=== PATIENT | male | born 1950 | race Caucasian/White ===

== ENCOUNTER → 2020-10-25 14:04 | Outpatient (REF) | payer MEDICARE, SELFPAY | LOC: HO.SL 14:04 | PROVIDERS: PCP Internal Medicine; Visit Provider Internal Medicine | DX: G47.33 Obstructive sleep apnea (adult) (pediatric) (principal) | CPT/HCPCS: 95806 ==

== ENCOUNTER → 2021-02-03 12:46 | Outpatient (BNVA) | payer MEDICARE, SELFPAY | PROVIDERS: PCP Internal Medicine; Visit Provider Nurse Practitioner Gerontology | DX: Z13.89 Encounter for screening for other disorder (principal) | CPT/HCPCS: Q3014 ==

== ENCOUNTER 2021-08-26 13:44 | Outpatient (REF) | payer MEDICARE, SELFPAY ==
[2021-08-26 17:53] LABS: Estimated Average Glucose 126 mg/dL
[2021-08-26 18:06] LABS: Alanine Aminotransferase 18 U/L (0-40); Albumin Level 4.5 g/dL (3.5-5.0); Alkaline Phosphatase 112 U/L (39-117); Anion Gap 17 (12-20); Aspartate Amino Transferase 15 U/L (5-37); Bilirubin Total 0.7 mg/dL (0.0-1.0); Blood Urea Nitrogen 19 mg/dL (9-16); Carbon Dioxide 22 mmol/L (22-29); Chloride 108 mmol/L (96-108); Cholesterol 115 mg/dL; Estimated Glomerular Filt Rate > 60; Glucose Fasting 126 mg/dL (60-99); HDL Cholesterol 35 mg/dL; LDL Cholesterol Calculated 49 mg/dl; Sodium 142 mmol/L (135-145); Total Protein 7.1 g/dL (6.5-8.0); Triglycerides 159 mg/dL
[2021-08-26 18:07] LABS: Microalbum/Creatinine Ratio Ur 15.7 ug/mg cr
[2021-08-26 18:26] LABS: Prostate Specific Antigen Scr 0.89 ng/mL (<0.05-4.0); Vitamin D 25-OH Total 37.9 ng/mL (>30)
[2021-08-28 04:56] LABS: LDL Cholesterol Direct 59 mg/dL (<100)
== END 2021-08-26 13:45 | disposition home or self-care (01) ==
LOC: HO.HMGCLDS 13:44
PROVIDERS: PCP Internal Medicine; Visit Provider Nurse Practitioner Gerontology
DX: E11.42 Type 2 diabetes mellitus with diabetic polyneuropathy (principal); E78.5 Hyperlipidemia, unspecified; I10 Essential (primary) hypertension; E66.01 Morbid (severe) obesity due to excess calories; Z68.36 Body mass index [BMI] 36.0-36.9, adult; E55.9 Vitamin D deficiency, unspecified; N40.0 Benign prostatic hyperplasia without lower urinary tract symptoms; Z12.5 Encounter for screening for malignant neoplasm of prostate
CPT/HCPCS: 36415; 80053; 80061; 82043; 82306; 83036; 83721; 84153

== ENCOUNTER → 2021-09-14 13:47 | Outpatient (BNVA) | payer MEDICARE, SELFPAY | PROVIDERS: PCP Internal Medicine; Referring Provider Internal Medicine; Visit Provider Internal Medicine Cardiovascular Disease | DX: I10 Essential (primary) hypertension (principal) | CPT/HCPCS: 93005; 99212 ==

== ENCOUNTER → 2021-12-26 07:26 | Outpatient (BNVA) | payer MEDICARE, SELFPAY | PROVIDERS: PCP Internal Medicine; Visit Provider Nurse Practitioner Gerontology | CPT/HCPCS: Q3014 ==

== ENCOUNTER 2022-05-10 14:36 | Outpatient (REF) | payer MEDICARE, SELFPAY ==
[2022-05-10 15:07] LABS: Hematocrit 41.1 % (42.0-52.0); Hemoglobin 13.6 g/dl (14.0-18.0); Mean Corpuscular HGB Conc 33.1 g/dl (31.0-36.0); Mean Corpuscular Hemoglobin 28.5 pg (27.0-33.0); Mean Corpuscular Volume 86.2 fL (80.0-98.0); Mean Platelet Volume 10.4 fL (9.4-12.4); Platelet Count 250 X10*3/uL (160-400); Red Blood Count 4.77 X10*6/uL (4.60-5.80); Red Cell Distribution Width 13.8 % (11.0-16.0); White Blood Count 8.7 X10*3/uL (4.8-10.8)
[2022-05-10 15:45] LABS: Alanine Aminotransferase 22 U/L (0-40); Albumin Level 4.4 g/dL (3.5-5.0); Alkaline Phosphatase 111 U/L (39-117); Anion Gap 10 (12-20); Aspartate Amino Transferase 20 U/L (5-37); Bilirubin Total 0.5 mg/dL (0.0-1.0); Blood Urea Nitrogen 18 mg/dL (9-16); Carbon Dioxide 25 mmol/L (22-29); Chloride 108 mmol/L (96-108); Cholesterol 129 mg/dL; Estimated Glomerular Filt Rate > 60; Glucose Fasting 115 mg/dL (60-99); HDL Cholesterol 35 mg/dL; LDL Cholesterol Calculated 64 mg/dl; Potassium 4.4 mmol/L (3.3-5.1); Sodium 139 mmol/L (135-145); Total Protein 7.1 g/dL (6.5-8.0); Triglycerides 151 mg/dL
[2022-05-10 15:47] LABS: Estimated Average Glucose 120 mg/dL; Hemoglobin A1c % 5.8 %
[2022-05-10 16:31] LABS: Creatinine Urine 65.04 mg/dL; Microalbum/Creatinine Ratio Ur 7.6 ug/mg cr
== END 2022-05-10 14:37 | disposition home or self-care (01) ==
LOC: HO.LAB 14:36
PROVIDERS: Absent Provider Nurse Practitioner Gerontology; PCP Internal Medicine; Visit Provider Internal Medicine
DX: Z13.89 Encounter for screening for other disorder (principal)
CPT/HCPCS: 36415; 80053; 80061; 82043; 82306; 83036; 84153; 85027

== ENCOUNTER 2022-05-10 15:09 | Outpatient (REF) | payer MEDICARE, SELFPAY ==
[2022-05-10 15:42] LABS: COVID-19 Test Negative (Negative); IDNOW Serial# 16C4AD1C
== END 2022-05-10 15:10 | disposition home or self-care (01) ==
LOC: HO.LAB 15:09
PROVIDERS: Visit Provider Internal Medicine
DX: E11.42 Type 2 diabetes mellitus with diabetic polyneuropathy (principal); E78.5 Hyperlipidemia, unspecified; I10 Essential (primary) hypertension; Z12.5 Encounter for screening for malignant neoplasm of prostate; Z20.822 Contact with and (suspected) exposure to COVID-19
CPT/HCPCS: 36415; 80053; 80061; 82043; 82306; 83036; 84153; 85027; 87635; C9803

== ENCOUNTER → 2022-08-25 13:00 | Outpatient (BNVA) | payer MEDICARE, SELFPAY | PROVIDERS: PCP Internal Medicine; Visit Provider Nurse Practitioner Family | DX: G47.30 Sleep apnea, unspecified (principal) | CPT/HCPCS: 99202 ==

== ENCOUNTER 2022-10-24 13:52 | Outpatient (REF) | payer MEDICARE, SELFPAY ==
[2022-10-24 16:44] LABS: Alanine Aminotransferase 23 U/L (0-40); Albumin Level 4.7 g/dL (3.5-5.0); Alkaline Phosphatase 118 U/L (39-117); Anion Gap 12 (12-20); Aspartate Amino Transferase 16 U/L (5-37); Bilirubin Total 0.6 mg/dL (0.0-1.0); Blood Urea Nitrogen 15 mg/dL (9-16); Calcium 9.7 mg/dL (8.4-10.2); Carbon Dioxide 28 mmol/L (22-29); Chloride 105 mmol/L (96-108); Cholesterol 127 mg/dL; Estimated Glomerular Filt Rate > 60; Glucose Fasting 108 mg/dL (60-99); HDL Cholesterol 36 mg/dL; LDL Cholesterol Calculated 63 mg/dl; Sodium 141 mmol/L (135-145); Total Protein 7.4 g/dL (6.5-8.0); Triglycerides 142 mg/dL
[2022-10-24 16:54] LABS: Estimated Average Glucose 126 mg/dL
[2022-10-24 17:16] LABS: Creatinine Urine 37.41 mg/dL; Microalbumin Urine < 5.0 mg/L
== END 2022-10-24 13:53 | disposition home or self-care (01) ==
LOC: HO.HMGCLDS 13:52
PROVIDERS: PCP Internal Medicine; Visit Provider Internal Medicine
DX: E11.42 Type 2 diabetes mellitus with diabetic polyneuropathy (principal); E78.5 Hyperlipidemia, unspecified; I10 Essential (primary) hypertension; L97.929 Non-pressure chronic ulcer of unspecified part of left lower leg with unspecified severity
CPT/HCPCS: 36415; 80053; 80061; 82043; 83036

== ENCOUNTER → 2022-10-30 21:22 | Outpatient (REF) | payer MEDICARE, SELFPAY | LOC: HO.SL 21:22 | PROVIDERS: Visit Provider Nurse Practitioner Family | DX: G47.33 Obstructive sleep apnea (adult) (pediatric) (principal) | CPT/HCPCS: 95810 ==

== ENCOUNTER → 2022-12-27 13:43 | Outpatient (BNVA) | payer MEDICARE, SELFPAY | PROVIDERS: PCP Internal Medicine; Visit Provider Nurse Practitioner Family | DX: G47.30 Sleep apnea, unspecified (principal) | CPT/HCPCS: 99212 ==

== ENCOUNTER 2023-06-29 13:59 | Outpatient (REF) | payer MEDICARE, SELFPAY ==
[2023-06-29 16:07] LABS: MANUAL DIFF FLAG NO
[2023-06-29 16:29] LABS: Basophils Absolute Auto 0.1 X10*3/uL (0.0-0.2); Basophils Percent Auto 0.5 % (0-2); Eosinophils Absolute Auto 0.3 X10*3/uL (0.0-0.4); Eosinophils Percent Auto 2.9 % (0-4); Hematocrit 35.2 % (42.0-52.0); Hemoglobin 11.6 g/dl (14.0-18.0); Imm Gran Abs Auto 0.05 X10*3/uL (0.00-0.03); Imm Gran Pct Auto 0.4 % (0.0-0.4); Lymphocytes Absolute Auto 1.9 X10*3/uL (1.2-4.9); Lymphocytes Percent Auto 16.4 % (20-40); Mean Corpuscular Hemoglobin 29.1 pg (27.0-33.0); Mean Corpuscular Volume 88.2 fL (80.0-98.0); Mean Platelet Volume 10.7 fL (9.4-12.4); Monocytes Absolute Auto 0.9 X10*3/uL (0.1-1.2); Monocytes Percent Auto 7.9 % (2-11); Neutrophils Absolute Auto 8.3 x10*3/uL (2.0-8.3); Neutrophils Percent Auto 71.9 % (45-73); Platelet Count 282 X10*3/uL (160-400); Red Blood Count 3.99 X10*6/uL (4.60-5.80); Red Cell Distribution Width 13.1 % (11.0-16.0); White Blood Count 11.6 X10*3/uL (4.8-10.8)
[2023-06-29 16:55] LABS: Alanine Aminotransferase 18 U/L (0-40); Albumin Level 4.3 g/dL (3.5-5.0); Alkaline Phosphatase 121 U/L (39-117); Anion Gap 17 (12-20); Aspartate Amino Transferase 17 U/L (5-37); Bilirubin Total 0.7 mg/dL (0.0-1.0); Blood Urea Nitrogen 11 mg/dL (9-16); Calcium 9.3 mg/dL (8.4-10.2); Carbon Dioxide 20 mmol/L (22-29); Chloride 109 mmol/L (96-108); Cholesterol 102 mg/dL; Estimated Glomerular Filt Rate > 60; Glucose Fasting 136 mg/dL (60-99); HDL Cholesterol 31 mg/dL; LDL Cholesterol Calculated 51 mg/dl; Potassium 3.7 mmol/L (3.3-5.1); Sodium 142 mmol/L (135-145); Total Protein 7.2 g/dL (6.5-8.0); Triglycerides 101 mg/dL
[2023-06-29 16:56] LABS: Estimated Average Glucose 117 mg/dL; Hemoglobin A1c % 5.7 %
[2023-06-29 17:20] LABS: Folate 8.4 ng/mL (> or = 4.0); Vitamin B12 > 2000 pg/mL (200-900)
[2023-06-29 17:36] LABS: Creatinine Urine 85.65 mg/dL; Microalbum/Creatinine Ratio Ur 11.6 ug/mg cr
== END 2023-06-29 14:00 | disposition home or self-care (01) ==
LOC: HO.HMGCLDS 13:59
PROVIDERS: PCP Internal Medicine; Visit Provider Internal Medicine
DX: E11.42 Type 2 diabetes mellitus with diabetic polyneuropathy (principal); E11.65 Type 2 diabetes mellitus with hyperglycemia; I10 Essential (primary) hypertension; E78.5 Hyperlipidemia, unspecified
CPT/HCPCS: 36415; 80053; 80061; 82043; 82306; 82607; 82746; 83036; 85025

== ENCOUNTER 2023-07-04 14:13 | Outpatient (AMB) | payer MEDICARE, SELFPAY ==
[2023-07-04 14:30] VITALS: BP 126/70; PULSE 71; BMI 33.3
--- NOTE | 2023-07-04 14:30 | A.OFFVIS_ITS ---
Intake Vital Signs 07/04/23 14:30 Height 5 ft 11 in Weight 238 lb 15.697 oz BMI 33.3 BP 126/70 Blood Pressure Location Lt brachial Position Sitting Pulse 71 Pulse Source Monitor Intake Visit Reasons: 1 year follow up Intake Note: 1 year follow up with EKG. 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 Accompanied by: Self / Same As Patient Allergies buspirone Adverse Reaction (Mild, Verified 07/04/23 14:33) didn't agree stomach, not helpful trazodone Adverse Reaction (Mild, Verified 07/04/23 14:33) infeffective, felt ill Medication List - Last Reconciled 07/04/23 by Lake Levy MD amlodipine 10 mg PO DAILY atorvastatin 80 mg PO DAILY blood sugar diagnostic (FreeStyle Lite Strips) 1 strip miscellaneous TID cholecalciferol (vitamin D3) 125 mcg PO DAILY empagliflozin 10 mg PO DAILY lancets (FreeStyle Lancets) As directed lancets (FreeStyle Lancets) 1 gauge topical TID lisinopril 40 mg PO DAILY lorazepam 0.5 mg PO DAILY PRN metformin 1,000 mg PO BID metoprolol succinate ER 100 mg PO BID mirtazapine 15 mg PO BEDTIME sertraline 200 mg PO DAILY HPI HPI Comments History of Present Illness Details Pleasant 72-year-old gentleman here for follow-up. He has background history of hypertension, diabetes and hyperlipidemia. Clinically he is asymptomatic right now. He is saying he has increased his activity in the recent past and has no chest discomfort shortness of breath. Taking medications regularly. 07/04/23: He returns for follow-up after 1 year. He has significant swelling on the left lower extremity more than right as well as erythema and blister formation. He has some pain in the extremity too. Blood pressure control is good. He is diabetic. [facility] Medical History Abnormal nuclear stress test BPH (benign prostatic hyperplasia) Colonoscopy refused Depression Diabetes mellitus with hyperglycemia Essential hypertension Hyperlipidemia LDL goal <70 Obesity due to excess calories Sleep apnea Type 2 diabetes mellitus with diabetic polyneuropathy Vitamin B12 deficiency Vitamin D deficiency Surgical History No pertinent past surgical history Family History Father Cancer Mother Dementia Social History Household Members: Spouse Household Members Other:: , with ETOH problem Housing: Apartment Alcohol intake: never Patient Tobacco Use Status: Former Tobacco user Quit Date: 1989 Smoked: 10 +/- e-Cigarette/Vaping Use: Never Used Current occupational status: retired Cognitive needs: No Hearing needs: No Vision needs: Yes Review of Systems Const Denies weakness ENT Denies dizziness Card Denies chest pain, Denies chest pain with activity, Denies syncope, Denies rapid heart rate, Denies pedal edema, Denies edema, Denies leg edema, Denies lightheadedness, Denies palpitations, Denies dyspnea, Denies dyspnea on exertion and Denies orthopnea Resp Denies cough, Denies dyspnea and Denies dyspnea on exertion GI Denies hematochezia and Denies change in stool character Musc Denies abnormal gait, Denies muscle cramps, Denies muscle weakness, Denies n umbness, Denies radiating pain into limb and Denies tingling Neuro Denies abnormal gait, Denies dizziness, Denies syncope, Denies numbness, Denies tingling and Denies weakness Endo Denies palpitations Physical Exam Vital Signs: Last Vital Signs Pulse 71 07/04/23 14:30 BP 126/70 07/04/23 14:30 BMI result Body Mass Index 33.3 GENERAL APPEARANCE: in no acute distress, pleasant. NECK: no carotid bruit, no jugular venous distention. SKIN: Left lower extremity erythema, blister formation. HEART: no murmurs, regular rate and rhythm. LUNGS: clear to auscultation bilaterally. ABDOMEN: soft, nontender. EXTREMITIES: no edema. PERIPHERAL PULSES: equal. NEUROLOGIC: No gross deficits, AAO X 3 Assessment & Plan Assessment & Plan (1) Essential hypertension: Code(s): I10 - Essential (primary) hypertension (2) Hyperlipidemia LDL goal <70: Code(s): E78.5 - Hyperlipidemia, unspecified (3) Cellulitis: Code(s): L03.90 - Cellulitis, unspecified Plan 72-year-old gentleman presenting for follow-up. He has background history of hypertension, hyperlipidemia and diabetes. His blood pressure control is good currently and he is taking amlodipine 10 mg daily and lisinopril 40 mg daily. He is also on metoprolol succinate 100 mg twice a day. He has lower extremity edema most likely due to amlodipine but clearly has left more than right-sided edema with left lower extremity erythema and blister formation and I am concerned with cellulitis. Starting him on doxycycline. I have advised him to follow-up with his primary care physician. Adding Lasix 20 mg once a day and I have advised him to take it for at least 2 weeks and report to us about lower extremity edema. If it does not improve Lasix should be stopped. Obviously if he cannot tolerate it and gets dizzy Lasix should be stopped. If he can tolerate it and edema improves then I would leave him on 20 mg Lasix daily with monitoring of electrolytes closely. Thank you for allowing me to participate in the care of your patient. Please feel free to contact me if you have any questions. Medications: New doxycycline hyclate 100 mg PO BID 14 caps 0RF L03.90 - Cellulitis, unspecified furosemide (Lasix) 20 mg PO DAILY 30 tabs 0RF I10 - Essential (primary) hypertension Coding Level of Care Code Est Pt Level 4 (57763) Diagnoses Essential hypertension I10 Hyperlipidemia LDL goal <70 E78.5 Cellulitis L03.90
== END 2023-07-04 15:07 | disposition home or self-care (01) ==
PROVIDERS: PCP Internal Medicine; Referring Provider Internal Medicine; Visit Provider Internal Medicine Cardiovascular Disease
DX: I10 Essential (primary) hypertension (principal); E78.5 Hyperlipidemia, unspecified; L03.90 Cellulitis, unspecified
CPT/HCPCS: 93010; 99214

== ENCOUNTER → 2023-07-04 14:13 | Outpatient (BNVA) | payer MEDICARE, SELFPAY | PROVIDERS: PCP Internal Medicine; Referring Provider Internal Medicine; Visit Provider Internal Medicine Cardiovascular Disease | DX: I45.10 Unspecified right bundle-branch block (principal); I10 Essential (primary) hypertension; E78.5 Hyperlipidemia, unspecified; L03.90 Cellulitis, unspecified | CPT/HCPCS: 93005; 99212 ==

== ENCOUNTER 2024-01-01 13:34 | Outpatient (AMB) | payer MEDICARE, SELFPAY ==
--- NOTE | 2024-01-01 13:52 | A.OFFVIS_ITS ---
Intake Vital Signs 01/01/24 13:57 Height 5 ft 11 in Weight 228 lb 8 oz BMI 31.9 BP 120/64 Blood Pressure Location Lt brachial Position Sitting Pulse 67 Pulse Source Pulse Oximeter Pulse Oximetry (%) 96 Oxygen Delivery Method Room Air Intake Visit Reasons: 1yr follow up sleep apnea - LVM Intake Note: Patient presents for 1 year f/u 'wants a different type of nasal mask Allergies buspirone Adverse Reaction (Mild, Verified 01/01/24 13:56) didn't agree stomach, not helpful trazodone Adverse Reaction (Mild, Verified 01/01/24 13:56) infeffective, felt ill HPI HPI Comments History of Present Illness Details 73 y/o male patient presents for follow up of TINO on CPAP. The CPAP compliance and therapy response (09/22/23-12/20/23) reviewed. Pt is on APAP [id number]. The usage days 100% and the average usage hours 7 hrs 30 min. The max pressure was 9.5 and the residual AHI was 1.9. Pt reports that he sleeps well with CPAP, can sleep throughout the night. Day time sleepiness and fatigue has improved. Wakes up refreshed and awake. The PSG sleep study result was mild degree of sleep apnea. The AHI was 13/hr and oxygen romain was 83%. REM sleep was not recorded which may underestimated the severity of the sleep apnea. [facility] Medical History Abnormal nuclear stress test BPH (benign prostatic hyperplasia) Colonoscopy refused Depression Diabetes mellitus with hyperglycemia Essential hypertension Hyperlipidemia LDL goal <70 Obesity due to excess calories Sleep apnea Type 2 diabetes mellitus with diabetic polyneuropathy Vitamin B12 deficiency Vitamin D deficiency Surgical History No pertinent past surgical history Family History Father Cancer Mother Dementia Social History Household Members: Spouse Household Members Other:: , with ETOH problem Housing: Apartment Alcohol intake: never Patient Tobacco Use Status: Former Tobacco user Quit Date: 1989 Smoked: 10 +/- e-Cigarette/Vaping Use: Never Used Current occupational status: retired Cognitive needs: No Hearing needs: No Vision needs: Yes Review of Systems Const All systems reviewed & are unremarkable except as noted in HPI and below ENT Reports Normal hearing present Neuro Reports Normal hearing present Physical Exam Vital Signs: Last Vital Signs Pulse 67 01/01/24 13:57 BP 120/64 01/01/24 13:57 Pulse Ox 96 01/01/24 13:57 Oxygen Delivery Method Room Air 01/01/24 13:57 BMI result Body Mass Index 31.9 Const General: cooperative and no acute distress Nutritional Appearance: obese Orientation/consciousness: patient oriented x3 Neck Neck: Yes supple Resp Effort & Inspection: normal respiratory effort and able to speak in complete sentences Neuro General: patient oriented x3 and moves all extremities Cranial nerves: Yes Normal facial strength present, Yes Midline tongue present, Yes Symmetric palate elevation present, Yes Normal hearing present, Yes Ability to bilaterally rotate head present and Yes Ability to bilaterally elevate shoulders present Cognition (Neuro): normal cognition Psych Appearance: grossly normal Mental Status: mental status grossly normal Speech and movement: Normal speech and movement present Affect: normal affect Attitude: cooperative Assessment & Plan Assessment & Plan (1) Sleep apnea: Comment: Severe degree of sleep apnea. The total AHI was 53/hr and oxygen romain was 77%. Code(s): G47.30 - Sleep apnea, unspecified Plan Advised patient to continue to use APAP [id number] as patient experiences good clinical effects. Stressed compliance, use APAP nightly and more than 4 hours. Continue to practice good sleep hygiene and wt reduction advised. Coding Level of Care Code Est Pt Level 3 (80928) Diagnoses Sleep apnea G47.30
[2024-01-01 13:57] VITALS: BP 120/64; PULSE 67; O2SAT 96; BMI 31.9
== END 2024-01-01 14:11 | disposition home or self-care (01) ==
PROVIDERS: Visit Provider Nurse Practitioner Family
DX: G47.30 Sleep apnea, unspecified (principal)
CPT/HCPCS: 99213

== ENCOUNTER → 2024-01-01 13:34 | Outpatient (BNVA) | payer MEDICARE, SELFPAY | PROVIDERS: Visit Provider Nurse Practitioner Family | DX: G47.30 Sleep apnea, unspecified (principal) | CPT/HCPCS: 99212 ==

== ENCOUNTER 2024-06-11 12:40 | Outpatient (AMB) | payer MEDICARE, SELFPAY ==
[2024-06-11 12:43] VITALS: BP 104/66; PULSE 68; O2SAT 98; BMI 32.8
--- NOTE | 2024-06-11 12:43 | A.OFFPC_ITS ---
Vital Signs 06/11/24 12:43 Height 5 ft 11 in Intake Visit Reasons: wellness chek Intake Note: Pt is here today for a PE. Allergies buspirone Adverse Reaction (Mild, Verified 01/01/24 13:56) didn't agree stomach, not helpful trazodone Adverse Reaction (Mild, Verified 01/01/24 13:56) infeffective, felt ill Tobacco use date assessed: 03/01/23 [facility] Medical History Abnormal nuclear stress test BPH (benign prostatic hyperplasia) Colonoscopy refused Depression Diabetes mellitus with hyperglycemia Essential hypertension Hyperlipidemia LDL goal <70 Obesity due to excess calories Sleep apnea Type 2 diabetes mellitus with diabetic polyneuropathy Vitamin B12 deficiency Vitamin D deficiency Surgical History No pertinent past surgical history Family History Father Cancer Mother Dementia Social History Household Members: Spouse Household Members Other:: , with ETOH problem Housing: Apartment Alcohol intake: never Patient Tobacco Use Status: Former Tobacco user Years Smoked: 10 +/- e-Cigarette/Vaping Use: Never Used Current occupational status: retired Cognitive needs: No Hearing needs: No Vision needs: Yes Questionnaire Thrive Questionnaire Date Thrive assessed: 03/01/23 JASPREET-7 AMB Questionnaire JASPREET-7 Date JASPREET - 7 assessed: 03/01/23 Source: Developed by Drs. Ross Mays, Jeimy Antonio, Phil Tavares and colleagues, with an educational ashly from [employer]. Physical exam (Primary Care) Tobacco/Smoking Status: Tobacco use Status Tobacco use date assessed 03/01/23 03/01/23 14:20 Patient Tobacco Use Status Former Tobacco user 03/01/23 14:20 e-Cigarette/Vaping Use Never Used 03/01/23 14:20 Thrive Assessment: Date of Thrive Assessment Date Thrive assessed 03/01/23 03/01/23 14:20 Coding
--- NOTE | 2024-06-11 12:44 | A.OFFVIS_ITS ---
Intake Vital Signs 06/11/24 12:43 Height 5 ft 11 in Weight 235 lb BMI 32.8 BP 104/66 Blood Pressure Location Rt brachial Position Sitting Pulse 68 Pulse Source Pulse Oximeter Pulse Oximetry (%) 98 Oxygen Delivery Method Room Air Intake Visit Reasons: wellness chek Allergies buspirone Adverse Reaction (Mild, Verified 06/11/24 12:46) didn't agree stomach, not helpful trazodone Adverse Reaction (Mild, Verified 06/11/24 12:46) infeffective, felt ill Medication List - Last Reconciled 06/11/24 by Rosa Elena Clarke MD amlodipine 10 mg PO DAILY atorvastatin 80 mg PO DAILY blood sugar diagnostic (FreeStyle Lite Strips) 1 strip miscellaneous TID cholecalciferol (vitamin D3) 125 mcg PO DAILY lancets (FreeStyle Lancets) As directed lancets (FreeStyle Lancets) 1 gauge topical TID lisinopril 40 mg PO DAILY lorazepam 0.5 mg PO DAILY PRN metformin 1,000 mg PO BID metoprolol succinate ER 100 mg PO BID mirtazapine 15 mg PO BEDTIME sertraline 200 mg PO DAILY HPI wellness chek HPI Details Initiated the conversation about Advanced Directives. Advanced Directives help? patients prepare for current and future decisions about their medical treatment? and place of care. Discussed with patient that it is a process where a patients? current condition and prognosis are reviewed, their wishes for information? regarding their illness are elicited, and likely medical dilemmas are presented? and options discussed. The form can be amended as needed, reviewed yearly and? make changes as needed IPPE/AWV ? year old presents? for her ? Annual? Wellness Visit, initial visit.? Medical / Social History Reviewed? Past Medical History ?Yes? . ? [place]? of Care / Care Team list updated ?Yes . ? Surgical/Hospitalization? History ?Yes . ? Current Medications? (including OTC and supplements) ?Yes . ? Family History ?Yes? . ? Tobacco? Control form ?Yes . ? AUDIT-C (Alcohol use) form? ?Yes . ? Illicit drug use in Social? History ?Yes . ? Current diagnosis of? depression? ?No ? Appropriate PHQ2/PHQ9? completed ?Yes . ? Data entered by ?Medical? Power Line Installer and reviewed by provider ? Fall Risk ? Fall? History? Have you had any falls with? injury in the past year? ?No . ? Have you had two or more? falls in the past year? ?No . ? Fall Risk Assessment: ?No? falls in the past year . ? HRA filled out by? the patient, reviewed by Provider and scanned. ? IPPE/AWV ? Balance? [place]? ?Yes . ? Tandem? walk ?Yes . ? Walk and? Turn ?Yes . ? Rise from? sit to stand ?Yes . ?Vision? Corrective? lens ?Yes ? Vision? screen ? Up-to-date, has an appointment [] for vision? screening and glaucoma screening ?Hearing? Whisper? test ?pass .? Initiated the conversation about Advanced Directives. Advanced Directives help? patients prepare for current and future decisions about their medical treatment? and place of care. Discussed with patient that it is a process where a patients? current condition and prognosis are reviewed, their wishes for information? regarding their illness are elicited, and likely medical dilemmas are presented? and options discussed. The form can be amended as needed, reviewed yearly and? make changes as needed Written? Plan?Completed. See Patient? Documents. [facility] Medical History (Updated 06/11/24 @ 14:10 by Rosa Elena Clarke MD) Colonoscopy refused BPH (benign prostatic hyperplasia) Depression Obesity due to excess calories Type 2 diabetes mellitus with diabetic polyneuropathy Hyperlipidemia LDL goal <70 Vitamin D deficiency Vitamin B12 deficiency Sleep apnea Essential hypertension Abnormal nuclear stress test Surgical History No pertinent past surgical history Family History Father Cancer Mother Dementia Social History Household Members: Spouse Household Members Other:: , with ETOH problem Housing: Apartment Alcohol intake: never Patient Tobacco Use Status: Former Tobacco user Years Smoked: 10 +/- e-Cigarette/Vaping Use: Never Used Current occupational status: retired Cognitive needs: No Hearing needs: No Vision needs: Yes Questionnaire Medicare Wellness Checkup [age] What gender do you identify with?: male During the past 4 weeks, how much have you been bothered by emotional problems such as feeling anxious, depressed, irritable, sad or downhearted, and blue?: extremely During the past 4 weeks, has your physical & emotional health limited your soc ial activities with family, friends, neighbors, or groups?: slightly During the past 4 weeks, how much bodily pain have you generally had?: very mild pain During the past 4 weeks, was someone available to help you if you needed & wanted help?: no, not at all During the past 4 weeks, what was the hardest physical activity you could do for at least 2 minutes?: moderate Can you get to places out of walking distance without help? (For eg., can you travel alone on buses, taxis or drive your car?): Yes Can you go shopping for groceries or clothes without someone's help?: Yes Can you prepare your own meals?: Yes Can you do your housework without help?: Yes Because of any health problems, do you need the help of another person with your personal care needs such as eating, bathing, dressing or getting around the house?: No Can you handle your own money without help?: Yes During the past 4 weeks, how would you rate your health in general?: very good During the past 4 weeks how have things been going for you?: very bad; could hardly be worse Are you having difficulties driving your car?: not applicable, I don't use a car Do you always fasten your seat belt when you are in a car?: yes, usually During past 4 weeks, have you been bothered by the following: never: Trouble eating well? and Problems using the telephone?, seldom: Falling or dizzy when standing up and Sexual problems? and sometimes: Teeth or denture problems? and Tiredness or fatigue? Have you fallen 2 or more times in the past year?: No Are you afraid of falling?: No Are you a smoker?: no During the past 4 weeks, how many drinks of wine, beer, or other alcoholic beverages did you have?: no alcohol at all Do you exercise for about 20 minutes 3 or more times a week?: yes, some of the time Have you been given information to help with the following?: no: Hazards in your house that might hurt you? and no: Keeping track of your medications? How often do you have trouble taking medicines the way you have been told to take them?: I always take medicine as prescribed How confident are you that you can control & manage most of your health problems?: somewhat confident What is your race?: White Mini Mental State Exam (MMSE) Orientation What is the (year) (season) (date) (day) (month)?: year, season, date, day and month Where are we (state) (county) (town or city) (hospital) (floor)?: state, county, town or city, hospital/clinic and floor Registration Name of 3 unrelated objects clearly and slowly, then ask patient to repeat all 3 of them. (1st repeat determines score. Make sure they can repeat all three): object 1, object 2 and object 3 Attention & Calculation (CHOOSE ONE) Spell WORLD backwards (DLROW): 5 letters Recall Ask patient to repeat the 3 items from question #3.: object 1, object 2 and object 3 Language Show patient a wristwatch & ask what it is. Repeat for pencil.: watch and pencil Ask the patient to repeat the phrase 'No ifs, ands, or buts' after you.: correct Ask the patient to 'take a piece of paper with their right hand' 'fold paper in half' 'place paper on floor': take paper in right hand, fold paper in half and place paper on floor Print the sentence 'CLOSE YOUR EYES' on a piece. If patient actually closes eyes then score.: followed written direction Give patient a blank piece of paper & ask to write a sentence. Score if it contains a noun & verb.: sentence contains subject and verb Score Score: 29 Activity of Daily Living Bathing - sponge bath, tub bath or shower: receives no assistance (gets in/out by self, if usual bathing means Dressing - getting clothes from closets & drawers, including inner/outer garments & fasteners.: gets clothes & gets completely dressed without help Toileting - going to the 'toilet room' for urine/bowel elimination & cleaning self/arranging clothes: goes to toilet room, cleans self, arranges clothes without help Transfer: moves in & out of bed and chair without help (may use support object) Continence: controls urination/bowel movements completely by self Feeding: feeds self without help Total Score: 0 Information obtained from: patient Using telephone: independent Traveling: independent Shopping: independent Preparing meals: independent Housework: independent Taking medicine: independent Managing money: independent PHQ-9 Over the last 2 weeks, how often have you been bothered by any of the following problems? 1. Little interest or pleasure in doing things: not at all 2. Feeling down, depressed, or hopeless: not at all 3. Trouble falling or staying asleep, or sleeping too much: not at all 4. Feeling tired or having little energy: not at all 5. Poor appetite or overeating: not at all 6. Feeling bad about yourself - or that you are a failure or have let yourself or your family down: not at all 7. Trouble concentrating on things, such as reading the newspaper or watching television: not at all 8. Moving or speaking so slowly that other people could have noticed. Or the opposite - being so fidgety or restless that you have been moving around a lot more than usual: not at all 9. Thoughts that you would be better off or of hurting yourself in some way: not at all Total score: 0 Depression Screening Interpretation: Negative Depression Screening Done: Yes Source: Developed by Drs. Ross Mays, Jeimy Antonio, Phil Tavares and colleagues, with an educational ashly from [employer]. Review of Systems Const All systems reviewed & are unremarkable except as noted in HPI and below Reports no additional complaints Eyes Reports no additional complaints ENT Reports no additional complaints Card Reports no additional complaints Resp Reports no additional complaints GI Reports no additional complaints Reports no additional complaints Physical Exam Vital Signs: Last Vital Signs Pulse 68 06/11/24 12:43 BP 104/66 06/11/24 12:43 Pulse Ox 98 06/11/24 12:43 Oxygen Delivery Method Room Air 06/11/24 12:43 BMI result Body Mass Index 32.8 Const General: no acute distress HEENT Head: Yes normal to inspection Neck Neck: Yes supple Resp Effort & Inspection: normal respiratory effort Auscultation: clear to auscultation bilaterally Cardio Rhythm: regular rhythm Heart sounds: S1 normal heart sound present and S2 normal heart sound present GI Inspection: Yes normal to inspection Palpation (GI): Soft to palpation Percussion: Yes normal to percussion Auscultation: normal bowel sounds Extrem General: Yes no clubbing, cyanosis or edema Assessment & Plan Assessment & Plan (1) Essential hypertension: Code(s): I10 - Essential (primary) hypertension Plan: cont meds (2) Hyperlipidemia LDL goal <70: Code(s): E78.5 - Hyperlipidemia, unspecified Plan: cont statin (3) Type 2 diabetes mellitus with diabetic polyneuropathy: Code(s): E11.42 - Type 2 diabetes mellitus with diabetic polyneuropathy Qualifiers: Diabetes mellitus shelter insulin use: without shelter use Qualified Code(s): E11.42 - Type 2 diabetes mellitus with diabetic polyneu ropathy Plan: ADA diet, regular exercise, weight loss discussed. Patient will return for fasting blood work (4) Annual physical exam: Code(s): Z00.00 - Encounter for general adult medical examination without abnormal findings Plan: well balanced diet, regular exercise discussed with the patient. He declined colonoscopy and Cologuard. Return in 6 months with a fasting labs before Orders: Orders Complete Blood Count Auto Diff Today E11.42 - Type 2 diabetes mellitus with diabetic polyneuropathy, E78.5 - Hyperlipidemia, unspecified, I10 - Essential (primary) hypertension, Z00.00 - Encounter for general adult medical examination without abnormal findings Comprehensive [place]. Panel Fast Today E11.42 - Type 2 diabetes mellitus with diabetic polyneuropathy, E78.5 - Hyperlipidemia, unspecified, I10 - Essential (primary) hypertension, Z00.00 - Encounter for general adult medical examination without abnormal findings Hemoglobin A1c 6 Months E11.42 - Type 2 diabetes mellitus with diabetic polyneuropathy, E78.5 - Hyperlipidemia, unspecified, I10 - Essential (primary) hypertension Comprehensive [place]. Panel Fast 6 Months E11.42 - Type 2 diabetes mellitus with diabetic polyneuropathy, E78.5 - Hyperlipidemia, unspecified, I10 - Essential (p rimary) hypertension Lipid Panel 6 Months E11.42 - Type 2 diabetes mellitus with diabetic polyneuropathy, E78.5 - Hyperlipidemia, unspecified, I10 - Essential (primary) hypertension Microalbumin, Random (w Creat) 6 Months E11.42 - Type 2 diabetes mellitus with diabetic polyneuropathy, E78.5 - Hyperlipidemia, unspecified, I10 - Essential (primary) hypertension Lipid Panel Today E11.42 - Type 2 diabetes mellitus with diabetic polyneuropathy, E78.5 - Hyperlipidemia, unspecified, I10 - Essential (primary) hypertension, Z00.00 - Encounter for general adult medical examination without abnormal findings Microalbumin, Random (w Creat) Today E11.42 - Type 2 diabetes mellitus with diabetic polyneuropathy, E78.5 - Hyperlipidemia, unspecified, I10 - Essential (primary) hypertension, Z00.00 - Encounter for general adult medical examination without abnormal findings Hemoglobin A1c Today E11.42 - Type 2 diabetes mellitus with diabetic polyneuropathy, E78.5 - Hyperlipidemia, unspecified, I10 - Essential (primary) hypertension, Z00.00 - Encounter for general adult medical examination without abnormal findings Quality Reporting (2019) Depression/Bipolar (159/160/161/177) PHQ-9: Total score: 0 Coding Level of Care Code Medicare Subsequent (G0439) Diagnoses Essential hypertension I10 Hyperlipidemia LDL goal <70 E78.5 Type 2 diabetes mellitus with diabetic polyneuropathy, without long-term current use of insulin E11.42 Diabetes mellitus shelter insulin use: without shelter use Annual physical exam Z00.00 CPT Codes Advance Care Planning - Advance Care Planning discussion: On file, no changes ([id number]) Advance Care Planning - Time spent: 1-15 minutes, not on file ([id number]) Advance Care Planning Advance Care Planning discussion: On file, no changes Forms completed: Health Care Proxy Time spent: 1-15 minutes, not on file
== END 2024-06-11 14:10 | disposition home or self-care (01) ==
PROVIDERS: PCP Internal Medicine; Visit Provider Internal Medicine
DX: Z00.00 Encounter for general adult medical examination without abnormal findings (principal); I10 Essential (primary) hypertension; E78.5 Hyperlipidemia, unspecified; E11.42 Type 2 diabetes mellitus with diabetic polyneuropathy
CPT/HCPCS: 1124F; G0439

== ENCOUNTER → 2024-12-19 12:14 | Outpatient (BNVA) | payer MEDICARE, SELFPAY | PROVIDERS: PCP Internal Medicine; Visit Provider Internal Medicine | DX: I10 Essential (primary) hypertension (principal); E55.9 Vitamin D deficiency, unspecified; E78.5 Hyperlipidemia, unspecified; E11.42 Type 2 diabetes mellitus with diabetic polyneuropathy; D64.9 Anemia, unspecified | CPT/HCPCS: 96127; 99212 ==

== ENCOUNTER 2025-05-21 12:54 | Outpatient (AMB) | payer MEDICARE, SELFPAY ==
[2025-05-21 13:10] VITALS: BP 100/60; PULSE 60; O2SAT 97; BMI 31.8
--- NOTE | 2025-05-21 13:10 | A.OFFVIS_ITS ---
Vital Signs 05/21/25 13:10 Height 5 ft 11 in Weight 228 lb BMI 31.8 BP 100/60 Blood Pressure Location Lt brachial Position Sitting Pulse 60 Pulse Source Pulse Oximeter Pulse Oximetry (%) 97 Oxygen Delivery Method Room Air Intake Visit Reasons: 1yr follow up sleep apnea Surgeon'S Assistant Required: No Accompanied by: Self / Same As Patient Allergies buspirone Adverse Reaction (Mild, Verified 05/21/25 13:11) didn't agree stomach, not helpful trazodone Adverse Reaction (Mild, Verified 05/21/25 13:11) infeffective, felt ill Medication List - Last Reconciled 05/21/25 by JOHN Hoyos amlodipine 10 mg PO DAILY atorvastatin 80 mg PO DAILY blood sugar diagnostic (FreeStyle Lite Strips) 1 strip miscellaneous TID cholecalciferol (vitamin D3) 125 mcg PO DAILY lancets (FreeStyle Lancets) As directed lancets (FreeStyle Lancets) 1 gauge topical TID lisinopril 40 mg PO DAILY lorazepam 0.5 mg PO DAILY PRN metformin 1,000 mg PO BID metoprolol succinate ER 100 mg PO BID mirtazapine 15 mg PO BEDTIME sertraline 200 mg PO DAILY HPI Comments Details: History of Present Illness The patient is a 74-year-old male presenting with obstructive sleep apnea. The patient has been using his current CPAP machine for approximately three and a half years, which has recently started malfunctioning by shutting off randomly during the night. The patient attempted basic troubleshooting without success and eventually contacted the travel consultant, [employer], who informed him that the machines are designed to shut off after a certain period, although typically longer than three and a half years. The patient was provided with a replacement machine by [facility] which is currently a rental, and reports that he generally sleeps well with it. He uses highly filtered water instead of distilled water due to availability issues during the COVID-19 pandemic, and he regularly cleans the machine's components. The patient has a history of using different CPAP machines, including a DreamStation from [employer], which he favored but is no longer available due to a recall. Review of Systems - Respiratory: Reports good sleep quality with CPAP machine. Denies any current respiratory symptoms. CPAP compliance review: Does patient have sufficient PAP supplies? Yes Does patient clean PAP supplies on a regular basis? Yes Does the patient use distilled water in their PAP machine water reservoir? No- uses highly filtered water PAP compliance report reviewed. Respiratory company: [facility] home care [employer] Serial number [id number] Compliance report date range: 02/20/2025 through 05/20/2025 Overall usage: 93 percent Usage greater than 4 hours: 86 percent PAP setting: APAP 5-20 cm H2O with EPR 2 Average usage on days used: 6 hours 41 min Average mask leakage: 23.8 LPM Residual AHI: 2 per hour 10/30/2022, PSG sleep study result was mild degree of sleep apnea. The AHI was 13/hr and oxygen romain was 83%. REM sleep was not recorded which may underestimated the severity of the sleep apnea. [facility] Medical History Colonoscopy refused BPH (benign prostatic hyperplasia) Depression Obesity due to excess calories Type 2 diabetes mellitus with diabetic polyneuropathy Hyperlipidemia LDL goal <70 Vitamin D deficiency Vitamin B12 deficiency Sleep apnea Essential hypertension Abnormal nuclear stress test Surgical History No pertinent past surgical history Family History Father Cancer Mother Dementia Social History Household Members: Spouse Household Members Other:: , with ETOH problem Housing: Apartment Alcohol intake: never Patient Tobacco Use Status: Former Tobacco user Years Smoked: 10 +/- e-Cigarette/Vaping Use: Never Used service: No Current occupational status: retired Cognitive needs: No Hearing needs: No Vision needs: Yes Physical Exam Vital Signs: Last Vital Signs Pulse 60 05/21/25 13:10 BP 100/60 05/21/25 13:10 Pulse Ox 97 05/21/25 13:10 Oxygen Delivery Method Room Air 05/21/25 13:10 BMI result Body Mass Index 31.8 Const General: no acute distress Orientation/consciousness: patient oriented x3 Resp Effort & Inspection: normal respiratory effort and able to speak in complete sentences Neuro General: patient oriented x3 Psych Mental Status: mental status grossly normal Speech and movement: Clear speech present Attitude: cooperative Assessment & Plan Assessment & Plan (1) Sleep apnea: Comment: Severe degree of sleep apnea. The total AHI was 53/hr and oxygen romain was 77%. Code(s): G47.30 - Sleep apnea, unspecified Category: Medical Qualifiers: Sleep apnea type: obstructive Qualified Code(s): G47.33 - Obstructive sleep apnea (adult) (pediatric) Plan Discussion Notes During the visit, we discussed the patient's current CPAP machine issues and the replacement process. I advised the patient on the importance of using distilled water for the CPAP machine to prolong its lifespan, although the current use of highly filtered water is more acceptable than tap water. We also reviewed the compliance data from the previous machine, which indicated good adherence to therapy. We obtained the updated compliance report from [facility], after patient departed today, upon review of current compliance report, patient continues to have good overall usage, with good reduction in residual AHI. Plan - Continue APAP 5-20 cmH2O w/ EPR 2 nightly > 4 hours, as pt continues to have good clinical effect from use. * Clean CPAP machine and supplies routinely, , including filters, masks, tubing, and water reservoir. * Change CPAP supplies routinely. * Consider using distilled water for the CPAP machine to enhance its longevity, if accessible. - Continue using the current rental CPAP machine and ensure regular cleaning and maintenance. - Contact [facility] to verify the status of the CPAP machine as a rental or loaner and to obtain a compliance report. - Follow up with the clinic if any further issues arise with the CPAP machine or if there are changes in sleep quality. Patient was informed and verbally consented to the use of an ambient scribe for clinic note documentation during this visit. Pt to follow-up in 12 months or sooner prn. Coding Level of Care Code Est Pt Level 3 (48349) Diagnoses Obstructive sleep apnea syndrome G47.33 Sleep apnea type: obstructive
== END 2025-05-21 14:23 | disposition home or self-care (01) ==
LOC: HO.HSMS 12:54
PROVIDERS: PCP Internal Medicine; Visit Provider Nurse Practitioner Family
DX: G47.33 Obstructive sleep apnea (adult) (pediatric) (principal)
CPT/HCPCS: 99213

== ENCOUNTER → 2025-05-21 12:54 | Outpatient (BNVA) | payer MEDICARE, SELFPAY | PROVIDERS: PCP Internal Medicine; Visit Provider Nurse Practitioner Family | DX: G47.33 Obstructive sleep apnea (adult) (pediatric) (principal) | CPT/HCPCS: 99212 ==

== ENCOUNTER 2025-09-02 13:57 | Outpatient (REF) | payer MEDICARE, SELFPAY ==
[2025-09-02 16:15] LABS: MANUAL DIFF FLAG NO
[2025-09-02 16:17] LABS: Hematocrit 33.2 % (42.0-52.0); Hemoglobin 11.4 g/dl (14.0-18.0); Imm Gran Abs Auto 0.04 X10*3/uL (0.00-0.03); Imm Gran Pct Auto 0.4 % (0.0-0.4); Lymphocytes Absolute Auto 2.7 X10*3/uL (1.2-4.9); Mean Corpuscular HGB Conc 34.3 g/dl (31.0-36.0); Mean Corpuscular Hemoglobin 29.6 pg (27.0-33.0); Mean Corpuscular Volume 86.2 fL (80.0-98.0); NRBC Abs Auto 0.000 X10*3/uL (0.0-0.012); NRBC Pct Auto 0.0 /100WBC (0.0-0.2); Platelet Count 229 X10*3/uL (160-400); Red Blood Count 3.85 X10*6/uL (4.60-5.80); White Blood Count 10.7 X10*3/uL (4.8-10.8)
[2025-09-02 16:31] LABS: Alanine Aminotransferase 23 U/L (0-40); Albumin Level 4.5 g/dL (3.5-5.0); Alkaline Phosphatase 122 U/L (39-117); Anion Gap 12 (12-20); Aspartate Amino Transferase 23 U/L (5-37); Blood Urea Nitrogen 26 mg/dL (9-16); Calcium 9.5 mg/dL (8.4-10.2); Carbon Dioxide 24 mmol/L (22-29); Chloride 111 mmol/L (96-108); Cholesterol 130 mg/dL (<200); Estimated Glomerular Filt Rate 56; HDL Cholesterol 33 mg/dL (>40); Potassium 5.1 mmol/L (3.3-5.1); Sodium 142 mmol/L (135-145); Total Protein 7.2 g/dL (6.5-8.0); Triglycerides 167 mg/dL (<150)
[2025-09-02 16:46] LABS: Microalbum/Creatinine Ratio Ur 8.3 ug/mg cr (<30)
[2025-09-02 17:02] LABS: Folate 6.5 ng/mL (> or = 4.0); Vitamin B12 521 pg/mL (200-900)
== END 2025-09-02 13:58 | disposition home or self-care (01) ==
LOC: HO.HMGCLDS 13:57
PROVIDERS: PCP Internal Medicine; Visit Provider Internal Medicine
DX: I10 Essential (primary) hypertension (principal); E11.42 Type 2 diabetes mellitus with diabetic polyneuropathy; E78.5 Hyperlipidemia, unspecified; E55.9 Vitamin D deficiency, unspecified; D64.9 Anemia, unspecified
CPT/HCPCS: 36415; 80053; 80061; 82043; 82570; 82607; 82746; 83036; 85025

== ENCOUNTER 2025-09-07 11:29 | Outpatient (AMB) | payer MEDICARE, SELFPAY ==
[2025-09-07 11:31] VITALS: BP 122/64; PULSE 76; RESP 20; TEMP 36.7; O2SAT 96; BMI 33.5
--- NOTE | 2025-09-07 11:31 | A.OFFPC_ITS ---
Vital Signs 09/07/25 11:31 Height 5 ft 11 in Weight 240 lb BMI 33.5 BP 122/64 Blood Pressure Location Lt brachial Position Sitting Respiration 20 Pulse 76 Pulse Source Pulse Oximeter Temp 98.1 F Temp Source Oral Pulse Oximetry (%) 96 Oxygen Delivery Method Room Air Intake Visit Reasons: 6 month follow up Intake Note: Pt is here today for 6 months follow up visit. Allergies buspirone Adverse Reaction (Mild, Verified 09/07/25 11:33) didn't agree stomach, not helpful trazodone Adverse Reaction (Mild, Verified 09/07/25 11:33) infeffective, felt ill Tobacco use date assessed: 09/07/25 Fall risk assessment: No Falls in past year Last assessed Fall Risk: 09/07/25 Dental Screening Dental Screen Date: 12/19/24 HPI 6 month follow up HPI Details Pt presents for f/u HTN, hyperlipid, DM2, depression, stable on meds. Patient has stopped taking all his medications for 2 weeks and his chronic lower back and leg pain resolved. Patient is established with a counselor and a prescriber for chronic depression. He tried to lower the dose of sertraline 200 mg but felt more depressed. [facility] Medical History (Updated 09/07/25 @ 11:55 by Rosa Elena Clarke MD) Colonoscopy refused BPH (benign prostatic hyperplasia) Depression Obesity due to excess calories Type 2 diabetes mellitus with diabetic polyneuropathy Hyperlipidemia LDL goal <70 Vitamin D deficiency Vitamin B12 deficiency Sleep apnea Essential hypertension Abnormal nuclear stress test Surgical History No pertinent past surgical history Family History Father Cancer Mother Dementia Social History Household Members: Spouse Household Members Other:: , with ETOH problem Housing: Apartment Alcohol intake: never Patient Tobacco Use Status: Former Tobacco user Years Smoked: 10 +/- e-Cigarette/Vaping Use: Never Used service: No Current occupational status: retired Cognitive needs: No Hearing needs: No Vision needs: Yes Questionnaire PHQ-9 Over the last 2 weeks, how often have you been bothered by any of the following problems? 1. Little interest or pleasure in doing things: several days 2. Feeling down, depressed, or hopeless: several days 3. Trouble falling or staying asleep, or sleeping too much: not at all 4. Feeling tired or having little energy: several days 5. Poor appetite or overeating: not at all 6. Feeling bad about yourself - or that you are a failure or have let yourself or your family down: several days 7. Trouble concentrating on things, such as reading the newspaper or watching television: not at all 8. Moving or speaking so slowly that other people could have noticed. Or the opposite - being so fidgety or restless that you have been moving around a lot more than usual: not at all 9. Thoughts that you would be better off or of hurting yourself in some way: not at all Total score: 4 Depression Screening Interpretation: Negative Depression Screening Done: Yes Source: Developed by Drs. Ross Mays, Jeimy Antonio, Phil Tavares and colleagues, with an educational ashly from [employer]. Thrive Questionnaire Date Thrive assessed: 12/12/24 I am a: Patient What is your living situation today?: I have a place to live, but I am worried about losing it in the future Within the past 12 months, did the food you bought not last and you didn't have the money to get more?: Sometimes True Within the past 12 months, did you worry whether your food would run out before you got money to buy more?: Sometimes True Do you have trouble paying for medicines?: I choose not to answer this question Do you have trouble getting transportation to medical appointments?: I choose not to answer this question Do you have trouble paying your heating and electricity bill?: I choose not to answer this question Do you have trouble taking care of your child, family member or friend?: I choose not to answer this question Do you have trouble with day-to-day activities such as bathing, preparing meals, shopping, managing finances, etc.?: I choose not to answer this question Are you currently unemployed and looking for a job?: No Are you interested in more education?: I choose not to answer this question Please select the resources that you would like help with: None THRIVE Score: 3 JASPREET-7 AMB Questionnaire JASPREET-7 Date JASPREET - 7 assessed: 12/19/24 Feeling nervous, anxious, or on edge: 2 = More than half the days Not being able to stop or control worryin = Nearly every day Worrying too much about different things: 2 = More than half the days Trouble relaxin = More than half the days Being so restless that it is hard to sit still: 0 = Not at all Becoming easily annoyed or irritable: 1 = Several days Feeling afraid as if something awful might happen: 1 = Several days Total JASPREET-7 score (0-4 normal; 5-9 mild; 10-14 moderate; 15-21 severe): 11 Source: Developed by Drs. Ross Mays, Jeimy Antonio, Phil Tavares and colleagues, with an educational ashly from [employer]. Review of Systems Const All systems reviewed & are unremarkable except as noted in HPI and below Eyes Reports no additional complaints ENT Reports no additional complaints Card Reports no additional complaints Resp Reports no additional complaints GI Reports no additional complaints Reports no additional complaints Physical exam (Primary Care) Vital Signs: Last Vital Signs Temp 98.1 F 09/07/25 11:31 Pulse 76 09/07/25 11:31 Resp 20 09/07/25 11:31 BP 122/64 09/07/25 11:31 Pulse Ox 96 09/07/25 11:31 Oxygen Delivery Method Room Air 09/07/25 11:31 BMI result Body Mass Index 33.5 Tobacco/Smoking Status: Tobacco use Status Tobacco use date assessed 09/07/25 09/07/25 11:37 Patient Tobacco Use Status Former Tobacco user 09/07/25 11:37 e-Cigarette/Vaping Use Never Used 09/07/25 11:37 PHQ-9: PHQ-9 Score PHQ-9: Total score 4 09/07/25 11:37 Depression Screening Interpretation: Negative Thrive Assessment: Date of Thrive Assessment Date Thrive assessed 12/12/24 09/07/25 11:37 Const General: no acute distress HENMT Head: Yes normal to inspection General nose exam: Normal external nose present Mouth: Normal oral and palatal mucosa present Throat: Yes posterior oropharynx normal Eyes General: appearance normal, both eyes and all related structures Neck Neck: Yes no lymphadenopathy and Yes supple Resp Effort & Inspection: normal respiratory effort Auscultation: clear to auscultation bilaterally Cardio Rhythm: regular rhythm Heart sounds: S1 normal heart sound present and S2 normal heart sound present GI Inspection: Yes normal to inspection Palpation (GI): Soft to palpation Percussion: Yes normal to percussion Auscultation: normal bowel sounds Coding Level of Care Code Est Pt Level 4 (40867) Diagnoses Essential hypertension I10 Hyperlipidemia LDL goal <70 E78.5 Type 2 diabetes mellitus with diabetic polyneuropathy, without long-term current use of insulin E11.42 Diabetes mellitus 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 Depression F32.9 Assessment & Plan Assessment & Plan (1) Essential hypertension: Code(s): I10 - Essential (primary) hypertension Category: Medical Plan: Continue current medications (2) Hyperlipidemia LDL goal <70: Code(s): E78.5 - Hyperlipidemia, unspecified Category: Medical Plan: Patient will stop atorvastatin for 1 month and report any change in his chronic lower back and leg pain (3) Type 2 diabetes mellitus with diabetic polyneuropathy: Code(s): E11.42 - Type 2 diabetes mellitus with diabetic polyneuropathy Category: Medical Qualifiers: Diabetes mellitus retirement insulin use: without retirement use Qualified Code(s): E11.42 - Type 2 diabetes mellitus with diabetic polyneuropathy Plan: A1c is 6.4, ADA diet increase exercise weight loss discussed with the patient . He will continue metformin (4) Depression: Comment: Established with a counselor and prescriber Code(s): F32.9 - Major depressive disorder, single episode, unspecified Category: Medical Plan: Continue current medications and follow-up with the counselor Orders: Orders Hemoglobin A1c 3 Months E11.42 - Type 2 diabetes mellitus with diabetic polyneuropathy, E78.5 - Hyperlipidemia, unspecified, I10 - Essential (primary) hypertension Lipid Panel 3 Months E11.42 - Type 2 diabetes mellitus with diabetic polyneuropathy, E78.5 - Hyperlipidemia, unspecified, I10 - Essential (primary) h ypertension Microalbumin, Random (w Creat) 3 Months E11.42 - Type 2 diabetes mellitus with diabetic polyneuropathy, E78.5 - Hyperlipidemia, unspecified, I10 - Essential (primary) hypertension IRON PROFILE 3 Months E11.42 - Type 2 diabetes mellitus with diabetic polyneuropathy, E78.5 - Hyperlipidemia, unspecified, I10 - Essential (primary) hypertension Comprehensive [place]. Panel Fast 3 Months E11.42 - Type 2 diabetes mellitus with diabetic polyneuropathy, E78.5 - Hyperlipidemia, unspecified, I10 - Essential (primary) hypertension Complete Blood Count Auto Diff 3 Months E11.42 - Type 2 diabetes mellitus with diabetic polyneuropathy, E78.5 - Hyperlipidemia, unspecified, I10 - Essential ( primary) hypertension Vitamin B12 and Folate 3 Months E11.42 - Type 2 diabetes mellitus with diabetic polyneuropathy, E78.5 - Hyperlipidemia, unspecified, I10 - Essential (primary) hypertension
== END 2025-09-07 11:51 | disposition home or self-care (01) ==
LOC: HO.HMCC 11:30
PROVIDERS: PCP Internal Medicine; Visit Provider Internal Medicine
DX: I10 Essential (primary) hypertension (principal); E78.5 Hyperlipidemia, unspecified; E11.42 Type 2 diabetes mellitus with diabetic polyneuropathy; F32.9 Major depressive disorder, single episode, unspecified

== ENCOUNTER → 2025-09-07 11:29 | Outpatient (BNVA) | payer MEDICARE, SELFPAY | PROVIDERS: PCP Internal Medicine; Visit Provider Internal Medicine | DX: I10 Essential (primary) hypertension (principal); E78.5 Hyperlipidemia, unspecified; E11.42 Type 2 diabetes mellitus with diabetic polyneuropathy; F32.9 Major depressive disorder, single episode, unspecified; Z79.899 Other long term (current) drug therapy | CPT/HCPCS: 96127; 99212 ==